=== PATIENT | female | born 1990 | race Caucasian/White ===

== ENCOUNTER → 2017-12-06 | Day surgery (SDC) | payer OTHER ==
[~2017-12-06] VITALS: Ht 162.6 cm; Wt 81.6 kg
[~2017-12-06] MED LIST: A/B OTIC 54 MG/15 ML OT; BACTRIM DS 8001 TAB PO; CIPRODEX 0.3%-7.5 ML OTIC; FLEXERIL10 MG PO; HUMALOG 100U100 U/ML SC; IBUPROFEN800 M1 PO; IBUPROFEN800 MG PO; IRON SUPPLEMEN325 MG PO; MICROGESTIN FE1 TAB PO; NAPROXEN500 MG PO; PERCOCET 325 MG1 TA2 PO; PERCOCET 5-3251 EACH PO; PRENATAL1 TA2 PO; VITAFOL-ONE1 SGL PO; ZOFRAN 4 MG TABL4 MG PO
--- NOTE | 2017-12-06 09:11 | Operative Report ---
Operative/Inv Procedure Report Surgery Date: 12/06/17 Name of Procedure: Laparoscopic cholecystectomy Pre-Operative Diagnosis: Biliary colic Post-Operative Diagnosis: Chronic cholecystitis Estimated Blood Loss: less than 50ml Surgeon/Perch Machine Inspector: Jeff VERDUZCO,Pedro Sanchez/Urszula MITCHELL Anesthesia: general endotracheal tube Specimens: Gallbladder Operative/Procedure Note Note: After informed consent patient is brought to the operating room and laid supine. General anesthesia was obtained and her abdomen was prepped and draped. The skin above the umbilicus infiltrated with local anesthesia and a curvilinear incision made sharply. We came down through the subcutaneous tissues bluntly and grasped the fascia with Isrrael's. A fasciotomy was created sharply and stay sutures placed. The peritoneum was entered sharply and a blunt Calderon port was placed. Pneumoperitoneum was achieved. 3, 5 mm ports were placed in the epigastrium and right upper quadrant after local anesthesia was instilled and under direct vision the camera. She's placed in reverse Trendelenburg and rotated towards the left. The gallbladder is identified. It was grasped at the dome and retracted towards the head. Infundibulum was then grasped. There was impacted stone in the infundibulum which was unable to be disimpacted. This made the dissection of the triangle were difficult. There are chronic inflammatory changes. Adhesions to the undersurface were taken down with blunt and cautery dissection. We dissected both sides the triangle Calot peritoneal tissue with cautery. The artery was medial and its normal anatomic position. It was cauterized medially to allow it to be mobilized away from the duct. [place] was cleared of areolar tissue with cautery. During the dissection there was small to moderate amount of bleeding from the artery. The arteries and duct were doubly ligated with clips. Gallbladder is removed from the fossa electrocautery. It was placed in Endo Catch bag and cinched up. Right upper quadrant was and suction irrigated normal saline. Hemostasis achieved with cautery. The ports were then removed and the gallbladder delivered and passed off the field. The fascia was closed with 0 Vicryl suture. Skin incisions closed with 4-0 Vicryl. Steri-Strips and sterile dressing applied. Sponge and needle counts are correct. CC: Judith Calabrese APRN
== END ==
LOC: STS 01:57
DX: K80.10 Calculus of gallbladder with chronic cholecystitis without obstruction (principal); F17.200 Nicotine dependence, unspecified, uncomplicated
CPT/HCPCS: 81025; J0131; J0690; J1100; J1885; J2250; J2405; J3490